=== PATIENT | female | born 1965 | race Caucasian/White ===

== ENCOUNTER → 2017-05-12 | Outpatient (CLI) | payer OTHER | LOC: RT 16:07 | PROVIDERS: ATTEND Allergy & Immunology | DX: R06.02 Shortness of breath (principal); R53.83 Other fatigue | CPT/HCPCS: 94761 ==

== ENCOUNTER 2017-08-31 09:15 | Outpatient (CLI) | payer OTHER | END 2017-08-31 09:55 | disposition home or self-care (01) | LOC: SLEEP 09:15 | PROVIDERS: ATTEND Nurse Practitioner Family | DX: G47.33 Obstructive sleep apnea (adult) (pediatric) (principal); G47.34 Idiopathic sleep related nonobstructive alveolar hypoventilation; R06.00 Dyspnea, unspecified; R53.83 Other fatigue; M32.9 Systemic lupus erythematosus, unspecified ==

== ENCOUNTER → 2017-09-14 | Outpatient (CLI) | payer OTHER | LOC: CARD 12:11 | PROVIDERS: ATTEND Nurse Practitioner Family | DX: J90 Pleural effusion, not elsewhere classified (principal); M32.9 Systemic lupus erythematosus, unspecified | CPT/HCPCS: 93306 ==

== ENCOUNTER → 2017-09-14 | Outpatient (CLI) | payer OTHER ==
[~2017-09-14] MED LIST: CATHETER FLUSH 10 ML SYR IV PRN; IOHEXOL 350 MG/ML 100 ML (OMNIPAQUE 350) VIAL IV ONE; NS 100 ML (IVPB) BAG IV ONE
[2017-09-14 13:15] LABS: BLOOD UREA NITROGEN 8 MG/DL (7-18); BUN/CREATININE RATIO 12; CREATININE SERUM 0.66 MG/DL (0.60-1.30); GFR ESTIMATED > 60
--- NOTE | 2017-09-14 21:14 | Diagnostic Imaging Report ---
PROCEDURE: CT chest with contrast only. TECHNIQUE: Multiple contiguous axial images were obtained through the chest after administration of intravenous contrast. INDICATION: Pain when breathing. CORRELATION STUDY: None. FINDINGS: While the axilla is somewhat limited and partially visualized, there does appear to be the presence of enlarged axillary and retropectoral lymph nodes. Marker lymph node in the right axilla measures 24 x 15 mm. A right retropectoral lymph node measures 21 x 10 mm. Left lateral retropectoral lymph node measuring 25 x 12 mm. Additional prominent lymph nodes at the base of the neck. No pathologically enlarged mediastinal lymph nodes. Heart size is enlarged with small pericardial effusion. There is slight haziness present. EG junction is unremarkable. There is presence of small pleural effusions with some suggested pleural thickening. Lung barcenas have minimal areas of atelectasis or perhaps of the present of the areas of infiltrate. Visualized portion of the upper abdomen demonstrates incomplete visualization of the spleen but does appear to be enlarged. Liver has slightly heterogeneous appearance with a prominent caudate lobe. Gallbladder is absent. Prominent anders hepatic lymphadenopathy. IMPRESSION: 1. Small pleural effusions with somewhat thickwalled appearance about the pleura. Minimal inflammatory or infectious process not excluded and suspect. Small pericardial effusion. Minimal areas of infiltrate or atelectasis about the lung bases, particularly of the left. 2. Rather prominent, concerning axillary and retropectoral lymph nodes, etiology indeterminate. Given this and apparent splenomegaly, however, does raise concern for potential lymphoma or leukemia. Clinical correlation recommended. Dictated by: Dictated on workstation # [id number]
== END ==
LOC: RAD 12:18
PROVIDERS: ATTEND Internal Medicine Critical Care Medicine
DX: J90 Pleural effusion, not elsewhere classified (principal); M32.9 Systemic lupus erythematosus, unspecified
CPT/HCPCS: 36415; 71260; 82565; 84520